=== PATIENT | female | born 1985 | race Caucasian/White ===

== ENCOUNTER 2018-06-07 17:51 | Emergency (ER) | payer SELFPAY ==
[~2018-06-07] VITALS: Ht 172.7 cm; Wt 77.1 kg
--- NOTE | 2018-06-07 17:58 | NUR ---
CALLED IN WR PT NOT THERE
--- NOTE | 2018-06-07 17:58 | NUR ---
A/OX4, NAD. PT IS COMPLAINING OF LEFT PELVIC PAIN X FRIDAY. ALL NEEDS ARE ATTENDED. WILL CONT TO MONITOR
[2018-06-07 18:30] LABS: BASOPHILS % (AUTO) 0.4 % (0.0-2.0); EOSINOPHILS % (AUTO) 0.5 % (0.0-6.0); HEMATOCRIT 43 % (33-45); HEMOGLOBIN 14.8 g/dL (11.5-14.8); LYMPHOCYTES # (AUTO) 1.7 /CMM (0.8-4.8); LYMPHOCYTES % (AUTO) 21.3 % (20.0-44.0); MEAN CORPUSCULAR HEMOGLOBIN 32 PG (26.0-33.0); MEAN CORPUSCULAR HGB CONC 34 g/dl (31.0-36.0); MEAN CORPUSCULAR VOLUME 93 fL (82-100); MONOCYTES # (AUTO) 0.4 /CMM (0.1-1.30); NEUTROPHILS # (AUTO) 5.9 /CMM (1.8-8.9); NEUTROPHILS % (AUTO) 72.8 % (43.0-81.0); PLATELET COUNT (AUTO) 169 /CMM (150-450); RDW COEFFICIENT OF VARIATION 11.5 (11.5-15.0); RED BLOOD CELL COUNT(AUTO) 4.65 MIL/uL (4.0-5.2)
[2018-06-07 18:30] LABS: APPEARANCE,URINE Clear (CLEAR); BILIRUBIN,URINE Negative (NEGATIVE); BLOOD, URINE Negative Ery/uL (NEGATIVE); COLOR,URINE Yellow (YELLOW); KETONES,URINE Negative (NEGATIVE); LEUKOCYTE ESTERASE ,URINE Negative (NEGATIVE); NITRITE, URINE Negative (NEGATIVE); PROTEIN,URINE Negative (NEGATIVE); UGLUCOSE Negative (NEGATIVE); UROBILINOGEN,URINE 0.2 EU/dL (0.2)
[2018-06-07] MEDS ORDERED: IV NS 0.9% 1,000 ML BAG IV ONE (18:30)
[2018-06-07 18:39] LABS: CALCIUM, SERUM 8.8 mg/dL (8.5-10.1); CREATININE 0.7 mg/dL (0.6-1.3)
[2018-06-07 18:45] LABS: ALBUMIN 4.1 g/dL (3.4-5.0); BILIRUBIN,DIRECT 0.1 mg/dL (0.0-0.2); BILIRUBIN,TOTAL 0.4 mg/dL (0.2-1.0); TOTAL PROTEIN, SERUM 7.1 g/dL (6.4-8.2)
[2018-06-07] MEDS ORDERED: CT SWABBABLE VALVE TRANS SET 1 EA INFUS.SET MC ONE (19:30)
[2018-06-07] MEDS ORDERED: IOHEXOL-300 100 ML VIAL IV ONE (19:30)
[2018-06-07] MEDS ORDERED: IV NS 0.9% 250 ML IV ONE (19:30)
[2018-06-07 21:08] VITALS: BP 119/80
--- NOTE | 2018-06-07 21:08 | NUR ---
Patient discharged to home in stable condition. Written and verbal after care instructions given. Patient verbalizes understanding of instruction.IV removed. Catheter intact and site benign. Pressure and 4x4 applied to site. No bleeding noted.
== END 2018-06-07 21:09 | disposition home or self-care (01) ==
LOC: ER 17:52
DX: K46.9 Unspecified abdominal hernia without obstruction or gangrene (principal); N80.9 Endometriosis, unspecified; Z88.0 Allergy status to penicillin
CPT/HCPCS: 36415; 74177; 76856; 80048; 80076; 81001; 84703; 85025; 99285; A4606; J7030; J7050; Q9967; Z7610; 81000-TC